=== PATIENT | male | born 1995 | race Caucasian/White ===

== ENCOUNTER 2016-11-05 22:39 | Emergency (ER) | payer MEDICAID ==
[2016-11-05 23:24] VITALS: BP 145/100
[2016-11-05] MEDS ORDERED: Ondansetron 4 MG Tab.DIS PO ONE (23:50)
--- NOTE | 2016-11-05 23:50 | EDM.PDOC ---
ED HPI GENERAL MEDICAL PROBLEM - General Chief Complaint: Abdominal Pain Stated Complaint: BOWELS Time Seen by Provider: 11/05/16 23:30 Source of Information: Reports: Patient, Family History Limitations: Reports: No Limitations - History of Present Illness INITIAL COMMENTS - FREE TEXT/NARRATIVE: 21-year-old male with Crohn's disease who had a total colectomy and partial small bowel resection and an ileostomy since August developed a sudden abdominal pain, nausea and vomiting and a sudden stoppage of production of material into his ileostomy bag. Symptoms lasted over 2 hours so he came in, he was extremely uncomfortable initially but then his ileostomy bag filled up with stool, he started feeling better and over the next hour his symptoms actually resolved. He had one emesis just after coming to the emergency room. Onset: Sudden Duration: Hour(s): (2-3 hours of symptoms) Location: Reports: Abdomen Severity: Moderate Associated Symptoms: Reports: Nausea/Vomiting Left Abdominal Pain Score (Numeric/FACES): 5 - Related Data Allergies Allergy/AdvReac Type Severity Reaction Status Date / Time infliximab [From Remicade] Allergy Difficulty Verified 05/01/15 18:53 Breathing ciprofloxacin AdvReac Intermediate Itching Verified 05/03/15 11:36 Home Meds: Home Meds Omeprazole [Prilosec] 40 mg PO DAILY 08/10/14 [History] azaTHIOprine [Imuran] 100 mg PO DAILY 08/10/14 [History] Multivitamin [Multivitamins] 1 tab PO DAILY 11/05/16 [History] Past Medical History HEENT History: Reports: Impaired Vision Other HEENT History: tonsillectomy age 4 yrs Other Gastrointestinal History: crohns 2013 Genitourinary History: Reports: None Hematologic History: Reports: Anemia, Blood Transfusion(s) Immunologic History: Reports: Immunosuppression - Infectious Disease History Infectious Disease History: Reports: Chicken Pox - Past Surgical History Other GI Surgeries/Procedures: Ostomy placed august 28 2016 Social & Family History - Family History Family Medical History: Noncontributory - Tobacco Use Smoking Status *Q: Never Smoker Second Hand Smoke Exposure: No - Caffeine Use Caffeine Use: Reports: None - Alcohol Use Days Per Week of Alcohol Use: 0 - Recreational Drug Use Recreational Drug Use: No - Living Situation & Occupation Living situation: Reports: Single, with Family Occupation: Unemployed ED ROS GENERAL - Review of Systems Review Of Systems: See Below Constitutional: Reports: Malaise. Denies: Fever, Chills Respiratory: Denies: Shortness of Breath Cardiovascular: Denies: Chest Pain GI/Abdominal: Reports: Abdominal Pain, Nausea, Vomiting, Other (Decreased ileostomy output) : Reports: No Symptoms Skin: Reports: Pallor, Diaphoresis Neurological: Reports: No Symptoms ED EXAM, GI/ABD - Physical Exam Exam: See Below Exam Limited By: No Limitations General Appearance: Alert, No Apparent Distress (Patient was markedly improved by the time I saw him) Eyes: Bilateral: Normal Appearance (Normal hydration, no jaundice) Head: Atraumatic Respiratory/Chest: No Respiratory Distress, Lungs Clear GI/Abdominal Exam: Normal Bowel Sounds, Soft Neurological: Alert, Oriented Psychiatric: Normal Affect, Normal Mood Skin Exam: Warm, Dry Course - Vital Signs Last Recorded V/S: Last Vital Signs Temp 96.7 F 11/05/16 23:34 Pulse 98 11/05/16 23:34 Resp 16 11/05/16 23:34 BP 145/100 H 11/05/16 23:34 Pulse Ox 98 11/05/16 23:34 - Orders/Labs/Meds Labs: Laboratory Tests 11/05/16 11/05/16 11/05/16 Range/Units 23:59 23:59 23:59 WBC 12.6 H (4.5-11.0) K/uL RBC 5.30 (4.30-5.90) M/uL Hgb 12.8 (12.0-15.0) g/dL Hct 39.6 L (40.0-54.0) % MCV 75 L (80-98) fL MCH 24 L (27-31) pg MCHC 32 (32-36) % Plt Count 305 (150-400) K/uL Neut % (Auto) 90 H (36-66) % Lymph % (Auto) 3 L (24-44) % Hemphill % (Auto) 7 H (2-6) % Eos % (Auto) 0 L (2-4) % Baso % (Auto) 0 (0-1) % Sodium 138 L (140-148) mmol/L Potassium 3.4 L (3.6-5.2) mmol/L Chloride 103 (100-108) mmol/L Carbon Dioxide 26 (21-32) mmol/L Anion Gap 12.4 (5.0-14.0) mmol/L BUN 14 D (7-18) mg/dL Creatinine 0.8 (0.8-1.3) mg/dL Est Cr Clr Drug Dosing 136.30 mL/min Estimated GFR (MDRD) > 60 (>60) Glucose 105 (74-106) mg/dL Calcium 8.7 (8.5-10.1) mg/dL Amylase 48 D (25-115) U/L Lipase 101 (73-393) U/L Meds: Medications Discontinued Medications Generic Name Dose Route Start Last Admin Trade Name Freq PRN Reason Stop Dose Admin Ondansetron HCl 4 mg 11/05/16 23:50 11/06/16 00:00 Zofran Odt PO 11/05/16 23:51 4 mg ONETIME ONE Administration - Re-Assessments/Exams Free Text/Narrative Re-Assessment/Exam: 11/06/16 00:35 Patient was given 4 mg of sublingual Zofran, and a CBC and CMP were obtained. Labs were reassuring and his symptoms did not recur. He likely had a temporary small bowel obstruction that resolved. He can return if his symptoms recur. Departure - Departure Time of Disposition: 00:41 Disposition: Home, Self-Care 01 Condition: Good Clinical Impression: Small bowel obstruction, Crohn's disease - Discharge Information Instructions: Abdominal Pain, Adult, [id number] Referrals: Joel He MD [Primary Care Provider] - Forms: ED Department Discharge Care Plan Goals: Consider just liquids tonight, then increase your diet and activity tomorrow as tolerated. Resume regular medications and return anytime if worsening or concerns.
== END 2016-11-06 00:41 | disposition home or self-care (01) ==
LOC: JP.ED 22:39
DX: K56.60 Unspecified intestinal obstruction (principal); K50.90 Crohn's disease, unspecified, without complications; D64.9 Anemia, unspecified; Z98.890 Other specified postprocedural states; Z88.1 Allergy status to other antibiotic agents; Z88.8 Allergy status to other drugs, medicaments and biological substances
CPT/HCPCS: 36415; 80048; 82150; 83690; 85025; 99284; A9270

== ENCOUNTER 2016-11-09 01:30 | Emergency (ER) | payer MEDICAID ==
[2016-11-09 04:54] VITALS: BP 141/84
--- NOTE | 2016-11-09 04:54 | EDM.PDOC ---
[id number] Complaint: COLOSTOMEY BAG TROUBLE Time Seen by Provider: 11/09/16 03:00 Source of Information: Reports: Patient, Family History Limitations: Reports: No Limitations - History of Present Illness INITIAL COMMENTS - FREE TEXT/NARRATIVE: 21-year-old male with an ileostomy since August is concerned that he has decreased output in the ileostomy bag for the last 6 hours. He has no pain. No fever or chills. Duration: Hour(s): (5-6 hours) - Related Data Allergies Allergy/AdvReac Type Severity Reaction Status Date / Time infliximab [From Remicade] Allergy Difficulty Verified 11/09/16 02:57 Breathing ciprofloxacin AdvReac Intermediate Itching Verified 11/09/16 02:57 Home Meds: Home Meds Omeprazole [Prilosec] 40 mg PO DAILY 08/10/14 [History] azaTHIOprine [Imuran] 100 mg PO DAILY 08/10/14 [History] Multivitamin [Multivitamins] 1 tab PO DAILY 11/05/16 [History] Past Medical History HEENT History: Reports: Impaired Vision Other HEENT History: tonsillectomy age 4 yrs Other Gastrointestinal History: crohns 2013 Genitourinary History: Reports: None Hematologic History: Reports: Anemia, Blood Transfusion(s) Immunologic History: Reports: Immunosuppression - Infectious Disease History Infectious Disease History: Reports: Chicken Pox - Past Surgical History Other GI Surgeries/Procedures: Ostomy placed august 28 2016 Social & Family History - Family History Family Medical History: Noncontributory - Tobacco Use Smoking Status *Q: Never Smoker Second Hand Smoke Exposure: No - Caffeine Use Caffeine Use: Reports: None - Alcohol Use Days Per Week of Alcohol Use: 0 - Recreational Drug Use Recreational Drug Use: No - Living Situation & Occupation Living situation: Reports: Single, with Family Occupation: Unemployed ED ROS GENERAL - Review of Systems Review Of Systems: See Below Constitutional: Denies: Fever, Chills, Malaise Respiratory: Denies: Shortness of Breath Cardiovascular: Denies: Chest Pain GI/Abdominal: Denies: Abdominal Pain, Nausea, Vomiting Skin: Reports: No Symptoms Neurological: Reports: No Symptoms ED EXAM, GI/ABD - Physical Exam Exam: See Below Exam Limited By: No Limitations General Appearance: Alert, No Apparent Distress Respiratory/Chest: No Respiratory Distress, Lungs Clear Cardiovascular: Regular Rate, Rhythm GI/Abdominal Exam: Normal Bowel Sounds, Soft Neurological: Alert, Oriented Psychiatric: Normal Affect, Normal Mood Skin Exam: Warm, Dry Course - Vital Signs Last Recorded V/S: Last Vital Signs Temp 96.9 F 11/09/16 04:53 Pulse 89 11/09/16 04:53 Resp 16 11/09/16 04:53 BP 141/84 H 11/09/16 04:53 Pulse Ox 100 11/09/16 04:53 - Orders/Labs/Meds Orders: Active Orders 24 hr Category Date Time Status Abdomen Pelvis wo Cont [CT] Stat Exams 11/09/16 03:11 Taken - Re-Assessments/Exams Free Text/Narrative Re-Assessment/Exam: 11/09/16 04:51 Because this is his second visit to the emergency room with ileostomy and abdominal complaints a CT of the abdomen was performed without contrast. This showed a moderate stool burden in the distal ileum just proximal to the ileostomy. These findings were discussed with the patient as well as with the colorectal surgeon at [facility] and he recommended they come down to be evaluated. This was discussed with the patient and his mother, they will return if symptoms develop or try to get down for his reevaluation sometime in the next several days. Departure - Departure Time of Disposition: 05:17 Disposition: Home, Self-Care 01 Condition: Good Clinical Impression: Crohn's disease, Small bowel obstruction - Discharge Information Instructions: Ileostomy Surgery, Small Bowel Obstruction Referrals: Joel He MD [Primary Care Provider] - Forms: ED Department Discharge Care Plan Goals: It is recommended that you have an evaluation by colorectal surgery at [facility] as soon as possible. Return to ER for ambulance transportation if pain develops. - My Orders Last 24 Hours: My Active Orders 11/09/16 03:11 Abdomen Pelvis wo Cont [CT] Stat - Assessment/Plan Last 24 Hours: My Active Orders 11/09/16 03:11 Abdomen Pelvis wo Cont [CT] Stat
== END 2016-11-09 05:17 | disposition home or self-care (01) ==
LOC: JP.ED 01:30
DX: K56.60 Unspecified intestinal obstruction (principal); K50.90 Crohn's disease, unspecified, without complications; Z88.1 Allergy status to other antibiotic agents; Z88.8 Allergy status to other drugs, medicaments and biological substances; Z79.899 Other long term (current) drug therapy; Z98.890 Other specified postprocedural states
CPT/HCPCS: 74176; 99284-25

== ENCOUNTER 2017-05-03 02:33 | Emergency (ER) | payer MEDICAID ==
[2017-05-03 02:59] VITALS: BP 157/92
--- NOTE | 2017-05-03 03:37 | EDM.PDOC ---
ED HPI GENERAL MEDICAL PROBLEM - General Chief Complaint: Chest Pain Stated Complaint: CHEST DISCOMFORT / POUNDING HEART BEAT Time Seen by Provider: 05/03/17 03:29 Source of Information: Reports: Patient, Family, RN Notes Reviewed History Limitations: Reports: No Limitations - History of Present Illness INITIAL COMMENTS - FREE TEXT/NARRATIVE: 21-year-old gentleman presents emergency department day complaint of chest pain , he had an episode of chest pain that awoke [facility] [place] [facility] his chest would wax and wane last about 5 minutes he is chest pain- free at this time no nausea no shortness of breath no diaphoresis - Related Data Allergies Allergy/AdvReac Type Severity Reaction Status Date / Time infliximab [From Remicade] Allergy Difficulty Verified 05/03/17 03:17 Breathing ciprofloxacin AdvReac Intermediate Itching Verified 05/03/17 03:17 Home Meds: Home Meds Omeprazole [Prilosec] 40 mg PO DAILY 08/10/14 [History] azaTHIOprine [Imuran] 100 mg PO DAILY 08/10/14 [History] Multivitamin [Multivitamins] 1 tab PO DAILY 11/05/16 [History] Past Medical History HEENT History: Reports: Impaired Vision Other HEENT History: tonsillectomy age 4 yrs Other Gastrointestinal History: crohns 2012 Hematologic History: Reports: Anemia, Blood Transfusion(s) Immunologic History: Reports: Immunosuppression - Infectious Disease History Infectious Disease History: Reports: Chicken Pox - Past Surgical History GI Surgical History: Reports: Other (See Below) Other GI Surgeries/Procedures: Ostomy placed august 28 2016 Social & Family History - Family History Family Medical History: Noncontributory - Tobacco Use Smoking Status *Q: Never Smoker Second Hand Smoke Exposure: No - Caffeine Use Caffeine Use: Reports: None - Alcohol Use Days Per Week of Alcohol Use: 0 - Recreational Drug Use Recreational Drug Use: No - Living Situation & Occupation Living situation: Reports: Single, with Family Occupation: Unemployed ED ROS GENERAL - Review of Systems Review Of Systems: See Below Constitutional: Reports: No Symptoms Respiratory: Reports: No Symptoms Cardiovascular: Reports: Chest Pain GI/Abdominal: Reports: No Symptoms ED EXAM, GENERAL - Physical Exam Exam: See Below Exam Limited By: No Limitations General Appearance: Alert, WD/WN, No Apparent Distress Respiratory/Chest: No Respiratory Distress, Lungs Clear, Normal Breath Sounds, No Accessory Muscle Use, Chest Non-Tender Cardiovascular: Regular Rate, Rhythm, No Murmur GI/Abdominal: Soft, Non-Tender, Other (Colostomy bag in place) Course - Vital Signs Last Recorded V/S: Last Vital Signs Temp 96.3 F 05/03/17 03:25 Pulse 86 05/03/17 03:25 Resp 13 05/03/17 03:25 BP 157/92 H 05/03/17 03:25 Pulse Ox 99 05/03/17 03:25 - Orders/Labs/Meds Orders: Active Orders 24 hr Category Date Time Status Cardiac Monitoring [RC] .As Directed Care 05/03/17 03:34 Active EKG Documentation Completion [RC] ASDIRECTED Care 05/03/17 02:44 Active Chest 2V [CR] Stat Exams 05/03/17 03:35 Taken EKG 12 Lead [EK] Stat Ther 05/03/17 02:44 Ordered Labs: Laboratory Tests 05/03/17 05/03/17 Range/Units 03:40 03:40 WBC 8.4 (4.5-11.0) K/uL RBC 5.88 (4.30-5.90) M/uL Hgb 15.1 H D (12.0-15.0) g/dL Hct 45.4 (40.0-54.0) % MCV 77 L (80-98) fL MCH 26 L (27-31) pg MCHC 33 (32-36) % Plt Count 285 (150-400) K/uL Neut % (Auto) 72 H (36-66) % Lymph % (Auto) 10 L (24-44) % Clay % (Auto) 13 H (2-6) % Eos % (Auto) 5 H (2-4) % Baso % (Auto) 0 (0-1) % Sodium 141 (140-148) mmol/L Potassium 3.6 (3.6-5.2) mmol/L Chloride 105 (100-108) mmol/L Carbon Dioxide 27 (21-32) mmol/L Anion Gap 8.6 (5.0-14.0) mmol/L BUN 14 (7-18) mg/dL Creatinine 0.9 (0.8-1.3) mg/dL Est Cr Clr Drug Dosing 131.81 mL/min Estimated GFR (MDRD) > 60 (>60) Glucose 100 (74-106) mg/dL Calcium 8.7 (8.5-10.1) mg/dL Total Bilirubin 0.6 D (0.2-1.0) mg/dL AST 25 D (15-37) U/L ALT 17 (12-78) U/L Alkaline Phosphatase 105 (46-116) U/L CK-MB (CK-2) 0.5 (0-3.6) mg/mL Troponin I < 0.017 (0.000-0.056) ng/mL Total Protein 6.6 (6.4-8.2) g/dL Albumin 3.2 L (3.4-5.0) g/dL Globulin 3.4 (2.3-3.5) g/dL Albumin/Globulin Ratio 0.9 L (1.2-2.2) Departure - Departure Time of Disposition: 04:31 Disposition: Home, Self-Care 01 Condition: Good Clinical Impression: Atypical chest pain Referrals: Joel He MD [Primary Care Provider] - Forms: ED Department Discharge Additional Instructions: Please followup with your primary care provider in 3-5 days if not better, please call return to the emergency department with worsening of symptoms. - My Orders Last 24 Hours: My Active Orders 05/03/17 02:44 EKG Documentation Completion [RC] ASDIRECTED EKG 12 Lead [EK] Stat 05/03/17 03:34 Cardiac Monitoring [RC] .As Directed 05/03/17 03:35 Chest 2V [CR] Stat - Assessment/Plan Last 24 Hours: My Active Orders 05/03/17 02:44 EKG Documentation Completion [RC] ASDIRECTED EKG 12 Lead [EK] Stat 05/03/17 03:34 Cardiac Monitoring [RC] .As Directed 05/03/17 03:35 Chest 2V [CR] Stat Plan: Assessment Acuity = acute Site and laterality = chest pain Etiology = unclear etiology Manifestations = none Location of injury = Home Lab values = CBC, CMP, troponin all within normal limits EKG demonstrates normal sinus rhythm, chest x-ray I did review films myself I cannot appreciate any acute process, the official read from radiology is pending Plan I did review lab work EKG chest x-ray results with him he remained chest pain- free while in the ED, plan is discharge home follow-up with primary care as needed This note was dictated using dragon voice recognition software please call with any questions on syntax or herbert.
--- NOTE | 2017-05-03 09:27 | CR ---
Chest 2V HISTORY: Chest Pain COMPARISON: 08/10/2014 FINDINGS: Lungs appear clear and normally aerated. Cardiomediastinal silhouette is within normal limits. No vas cular redistribution or pleural fluid can be seen. Bony structures and soft tissues are unremarkable. IMPRESSION: No acute chest abnormality or significant interval change is identified.
== END 2017-05-03 04:35 | disposition home or self-care (01) ==
LOC: JP.ED 02:33
DX: R07.89 Other chest pain (principal); Z88.8 Allergy status to other drugs, medicaments and biological substances; Z88.1 Allergy status to other antibiotic agents
CPT/HCPCS: 36415; 71046; 71046-26; 80053; 82553; 84484; 85025; 93005; 99285-25

== ENCOUNTER 2017-07-18 17:57 | Emergency (ER) | payer MEDICAID ==
[2017-07-18 18:07] VITALS: BP 123/68
--- NOTE | 2017-07-18 18:07 | EDM.PDOC ---
ED HPI GENERAL MEDICAL PROBLEM - General Chief Complaint: Lower Extremity Injury/Pain Stated Complaint: INJURY BLEW KNEE CAP Time Seen by Provider: 07/18/17 18:00 Source of Information: Reports: Patient, EMS History Limitations: Reports: No Limitations - History of Present Illness INITIAL COMMENTS - FREE TEXT/NARRATIVE: 21-year-old male was swinging a bat during baseball" blew his knee out". He has an obvious lateral dislocation of his left patella. He was given 100 g of fentanyl in route by EMS. No other injury. He does have a history of Crohn's disease. Onset: Sudden Severity: Moderate - Related Data Allergies Allergy/AdvReac Type Severity Reaction Status Date / Time infliximab [From Remicade] Allergy Difficulty Verified 07/18/17 17:59 Breathing ciprofloxacin AdvReac Intermediate Itching Verified 07/18/17 17:59 Home Meds: Home Meds Omeprazole [Prilosec] 40 mg PO DAILY 08/10/14 [History] azaTHIOprine [Imuran] 100 mg PO DAILY 08/10/14 [History] Multivitamin [Multivitamins] 1 tab PO DAILY 11/05/16 [History] Certolizumab Pegol [Cimzia] 1 ampule SUBCUT ASDIRECTED 07/18/17 [History] Past Medical History HEENT History: Reports: Impaired Vision Other HEENT History: tonsillectomy age 4 yrs Other Gastrointestinal History: crohns 2012 Hematologic History: Reports: Anemia, Blood Transfusion(s) Immunologic History: Reports: Immunosuppression - Infectious Disease History Infectious Disease History: Reports: Chicken Pox - Past Surgical History GI Surgical History: Reports: Other (See Below) Other GI Surgeries/Procedures: Ostomy placed august 28 2016 Social & Family History - Family History Family Medical History: Noncontributory - Tobacco Use Smoking Status *Q: Never Smoker Second Hand Smoke Exposure: No - Caffeine Use Caffeine Use: Reports: None - Alcohol Use Days Per Week of Alcohol Use: 0 - Recreational Drug Use Recreational Drug Use: No - Living Situation & Occupation Living situation: Reports: Single, with Family Occupation: Unemployed Review of Systems - Review of Systems Review Of Systems: See Below Constitutional: Denies: Fever Respiratory: Denies: Shortness of Breath GI/Abdominal: Reports: Other (History of Crohn's disease) Skin: Reports: No Symptoms Neurological: Reports: No Symptoms ED EXAM, GENERAL - Physical Exam Exam: See Below Exam Limited By: No Limitations General Appearance: Alert, Anxious, Mild Distress Respiratory/Chest: No Respiratory Distress, Lungs Clear Extremities: Other (Left leg, knee is held at 90 angle with an obvious lateral dislocation of the patella) Skin Exam: Warm, Dry Course - Vital Signs Last Recorded V/S: Last Vital Signs Temp 98.5 F 07/18/17 18:28 Pulse 94 07/18/17 18:28 Resp 16 07/18/17 18:28 BP 123/68 07/18/17 18:28 Pulse Ox 97 07/18/17 18:28 - Orders/Labs/Meds Orders: Active Orders 24 hr Category Date Time Status Knee 3V Lt [CR] Stat Exams 07/18/17 18:04 Taken DME for Discharge [COMM] Stat Oth 07/18/17 18:16 Ordered - Re-Assessments/Exams Free Text/Narrative Re-Assessment/Exam: 07/18/17 18:20 Patient is already had 100 g of fentanyl so the leg was straightened and with countertraction the patella easily reduced. A postreduction x-ray showed no fracture. A three-inch Anthony wrap was applied to the knee, he was fitted with crutches and he'll recheck with orthopedics tomorrow at 2:30. Departure - Departure Time of Disposition: 18:44 Disposition: Home, Self-Care 01 Condition: Good Clinical Impression: Closed patellar dislocation Qualifiers: Encounter type: initial encounter Laterality: left Qualified Code(s): S83.005A - Unspecified dislocation of left patella, initial encounter - Discharge Information Instructions: Crutch Use, Adult, [id number], Patellar Dislocation, Easy-to- Read Referrals: PCP,None [Primary Care Provider] - Forms: ED Department Discharge Care Plan Goals: Use crutches and Anthony wrap until tomorrow afternoon and recheck with Alli Mauro at 2:15 in the orthopedics clinic in the basement of the hospital. Elevate leg and ibuprofen may help along with ice to the knee. - My Orders Last 24 Hours: My Active Orders 07/18/17 18:04 Knee 3V Lt [CR] Stat 07/18/17 18:16 DME for Discharge [COMM] Stat - Assessment/Plan Last 24 Hours: My Active Orders 07/18/17 18:04 Knee 3V Lt [CR] Stat 07/18/17 18:16 DME for Discharge [COMM] Stat
--- NOTE | 2017-07-19 10:57 | CR ---
Knee 3V Lt CLINICAL HISTORY: Knee pain, patellar dislocation FINDINGS: No acute fracture or dislocation is noted. There are no osseous lesions. No significant carlos nt effusion identified. Impression: No fracture Patella appears to be in normal position
== END 2017-07-18 18:44 | disposition home or self-care (01) ==
LOC: JP.ED 17:57
DX: S83.005A Unspecified dislocation of left patella, initial encounter (principal); Z79.899 Other long term (current) drug therapy; Z88.1 Allergy status to other antibiotic agents; Z88.8 Allergy status to other drugs, medicaments and biological substances; X50.9XXA Other and unspecified overexertion or strenuous movements or postures, initial encounter; Y93.67 Activity, basketball
CPT/HCPCS: 73562-26-LT; 73562-LT; 99284-25

== ENCOUNTER 2022-08-21 17:56 | Emergency (ER) | payer MEDICAID ==
[2022-08-21] MEDS ORDERED: Sodium Chloride 0.9% 10 ML Syringe FLUSH PRN (22:17)
[2022-08-21 22:25] LABS: BASOPHILS PERCENT AUTO 0.2 % (0.1-1.3); HEMATOCRIT 48.9 % (38.4-49.7); HEMOGLOBIN 17.3 g/dL (12.9-16.9); IMMATURE GRAN ABSOLUTE AUTO 0.04 K/uL (0.00-0.23); IMMATURE GRAN PERCENT AUTO 0.3 % (0.0-0.7); LYMPHOCYTES PERCENT AUTO 4.9 % (11.4-47.7); MEAN CORPUSCULAR HEMOGLOBIN 31.2 pg (31.6-35.5); MEAN CORPUSCULAR HGB CONC 35.4 g/dL (31.6-35.5); MEAN CORPUSCULAR VOLUME 88.3 fL (81.4-99.0); MONOCYTES ABSOLUTE AUTO 0.39 K/uL (0.20-0.90); MONOCYTES PERCENT AUTO 3.2 % (3.3-12.6); NEUTROPHILS ABSOLUTE AUTO 11.12 K/uL (1.0-7.6); NEUTROPHILS PERCENT AUTO 91.4 % (40.0-78.1); PLATELET COUNT,PLT 265 K/uL (130-375); RED BLOOD CELL COUNT 5.54 M/uL (4.14-5.76); WHITE BLOOD CELL COUNT,WBC 12.2 K/uL (3.2-11.0)
[2022-08-21 22:26] LABS: BASOPHILS ABSOLUTE AUTO 0.02 K/uL (0.00-0.10)
[2022-08-21 22:45] LABS: ALANINE AMINOTRANSFERASE,ALT 55 U/L (12-78); ALBUMIN 3.9 g/dL (3.4-5.0); ALKALINE PHOSPHATASE 84 U/L (46-116); ANION GAP 10.9 mmol/L (5.0-14.0); ASPARTATE AMNIOTRANSFERASE,AST 31 U/L (15-37); BILIRUBIN TOTAL 1.8 mg/dL (0.2-1.0); BLOOD UREA NITROGEN,BUN 11 mg/dL (7-18); CARBON DIOXIDE,CO2 26 mmol/L (21-32); CHLORIDE,CL 103 mmol/L (100-108); CREATININE 0.9 mg/dL (0.8-1.3); EST CRCL DRUG DOSING (CG) 125.05 mL/min; ESTIMATED GFR 119 mL/min (>60); GLUCOSE RANDOM 97 mg/dL (74-106); POTASSIUM,K 3.8 mmol/L (3.6-5.2); PROTEIN TOTAL,TP 7.9 g/dL (6.4-8.2); SODIUM,NA 140 mmol/L (140-148)
[2022-08-21] MEDS ORDERED: Iopamidol 612 MG/ML 100 ML Bottle IV STA (23:05)
[2022-08-21] MEDS ORDERED: Sodium Chloride 0.9% 50 ML IV STA (23:06)
[2022-08-22] MEDS ORDERED: Sodium Chloride 0.9% 1,000 ML IV ONE (00:41)
[2022-08-22] MEDS ORDERED: HYDROmorphone 0.5 MG/0.5 ML Syringe IM STA (00:42)
[2022-08-22] MEDS ORDERED: HYDROmorphone 0.5 MG/0.5 ML Syringe IV STA (00:47)
[2022-08-22] MEDS ORDERED: Ondansetron 4 MG/2 ML SDV IVPUSH PRN (03:05)
[2022-08-22] MEDS ORDERED: HYDROmorphone 0.5 MG/0.5 ML Syringe IM PRN (03:05)
[2022-08-22] MEDS ORDERED: Lactated Ringers 1,000 ML IV SCH (03:15)
[2022-08-22] MEDS ORDERED: HYDROmorphone 0.5 MG/0.5 ML Syringe IVPUSH PRN (08:06)
[2022-08-22 08:32] VITALS: BP 122/67; PULSE 81
== END 2022-08-22 08:05 ==
LOC: JP.ED 17:56
DX: K56.600 Partial intestinal obstruction, unspecified as to cause (principal); Z88.8 Allergy status to other drugs, medicaments and biological substances; Z88.1 Allergy status to other antibiotic agents
CPT/HCPCS: 36415; 74019; 74177; 80053; 85025; 96361; 96374; 96376; 99285; J1170; J3490; J7030; J7120; Q9967